=== PATIENT | male | born 1980 | race Caucasian/White ===

== ENCOUNTER 2016-09-11 05:02 | Emergency (ER) | payer BC ==
[~2016-09-11] VITALS: Ht 182.9 cm; Wt 116.2 kg
[2016-09-11] MEDS ORDERED: MORPHINE SULFATE 4 MG/ML, 1ML ONE (05:24)
[2016-09-11] MEDS ORDERED: KETOROLAC 30 MG/1 ML ONE (05:24)
[2016-09-11] MEDS ORDERED: ONDANSETRON 2MG/ML, 2ML ONE (05:25)
[2016-09-11] MEDS ORDERED: ONDANSETRON 2MG/ML, 2ML IVPush ONE (05:30)
[2016-09-11] MEDS ORDERED: KETOROLAC 30 MG/1 ML IVPush ONE (05:30)
[2016-09-11] MEDS ORDERED: SODIUM CHLORIDE FLUSH 10ML SYR IVF ONE (05:30)
[2016-09-11] MEDS ORDERED: MORPHINE SULFATE 4 MG/ML, 1ML IVPush PRN (05:30)
[2016-09-11 06:04] LABS: BLOOD UREA NITROGEN 19 mg/dL (7-18)
[2016-09-11 06:37] VITALS: BP 98/59
== END 2016-09-11 08:28 | disposition home or self-care (01) ==
LOC: ED 05:57
DX: N20.2 Calculus of kidney with calculus of ureter (principal)
CPT/HCPCS: 36415; 74176; 80048; 81001; 82040; 85025; 87086; 96374; 96375; 99285; J1885; J2405